=== PATIENT | female | born 1930 ===

== ENCOUNTER 2019-01-02 09:49 | Emergency (ER) | payer OTHER ==
[~2019-01-02] VITALS: Ht 157.5 cm; Wt 63.5 kg
== END 2019-01-02 14:16 | disposition home or self-care (01) ==
LOC: ER 09:49
DX: S32.010A Wedge compression fracture of first lumbar vertebra, initial encounter for closed fracture (principal); S32.030A Wedge compression fracture of third lumbar vertebra, initial encounter for closed fracture; S00.03XA Contusion of scalp, initial encounter; S19.89XA Other specified injuries of other specified part of neck, initial encounter; W18.09XA Striking against other object with subsequent fall, initial encounter; Y93.89 Activity, other specified; Y92.413 State road as the place of occurrence of the external cause; Y99.8 Other external cause status